=== PATIENT | female | born 1975 | race Caucasian/White ===

== ENCOUNTER 2019-03-17 15:22 | Emergency (ER) | payer BC ==
[~2019-03-17] VITALS: Ht 165.1 cm; Wt 137.3 kg
[2019-03-17 15:27] VITALS: TEMP 98.1
[2019-03-17] MEDS ORDERED: NORVASC 5MG5 MG/TAB PO (15:46)
[2019-03-17 15:51] LABS: BASO % 0.4 % (0.0-2.0); EOS # 0.3 (0.0-0.7); EOS % 3.3 % (0-4.0); GRAN # 4.4 (1.4-6.5); GRAN % 56.3 % (42.2-75.2); HEMATOCRIT 40.7 % (37.0-47.0); HEMOGLOBIN 13.2 g/dl (12.5-16.0); LYMPH # 2.6 (1.2-3.4); MEAN CELL VOLUME 87 fl (80.0-100.0); MEAN CORPUSCULAR HEMOGLOBIN 28 pg (27.0-31.0); MEAN CORPUSCULAR HGB CONC 32 g/dl (33.0-37.0); MEAN PLATELET VOLUME 10.3 fl (7.4-10.4); MONO # 0.5 (0.1-0.6); MONO % 6.6 % (1.7-9.3); PLATELET COUNT 217 K/mm3 (130-400); REDCELL DISTRIBUTION WIDTH-CV 13.2 % (11.5-14.5)
[2019-03-17] MEDS ORDERED: EDARBI80 MG PO (15:58)
[2019-03-17 16:06] VITALS: PULSE 83
[2019-03-17 16:09] LABS: ALANINE AMINOTRANSFERASE 6 U/L (9-52); ALBUMIN 4.2 gm/dL (3.5-5.0); ALKALINE PHOSPHATASE 84 U/L (50-136); ANION GAP 11 mmol/L (7-16); AST,SGOT 17 U/L (15-37); BILIRUBIN,TOTAL 0.3 mg/dL (0.0-1.0); BLOOD UREA NITROGEN 16 mg/dL (7-17); C-REACTIVE PROTEIN 0.6 mg/dL (0.0-0.9); CALCIUM 9.8 mg/dL (8.4-10.2); CARBON DIOXIDE 25 mmol/L (22-30); CHLORIDE 104 mmol/L (98-107); CREATININE, serum 0.91 (0.52-1.25); GLUCOSE 93 mg/dL (74-106); LIPASE 69 U/L (23-300); SODIUM 139 mmol/L (137-145); TOTAL PROTEIN 7.9 gm/dL (6.4-8.2)
[2019-03-17 16:18] LABS: TROPONIN-I < 0.012 ng/mL (0.000-0.035)
[2019-03-17 18:40] VITALS: BP 126/72
== END 2019-03-17 18:43 | disposition home or self-care (01) ==
LOC: COL.ER 15:22
PROVIDERS: Emergency Medicine
DX: R07.89 Other chest pain (principal); I10 Essential (primary) hypertension; F17.210 Nicotine dependence, cigarettes, uncomplicated; Z96.22 Myringotomy tube(s) status; Z98.51 Tubal ligation status

== ENCOUNTER 2021-04-13 09:19 | Emergency (ER) | payer BC ==
[~2021-04-13] VITALS: Ht 167.6 cm; Wt 147.7 kg
[~2021-04-13 09:19] MED LIST: AMOXICILLIN 8751 TAB PO; CATAPRES 0.1MG0.1 MG PO; EDARBI80 MG PO; NAPROXEN500 M1 PO; NORCO 325 MG-51 TAB PO; NORVASC 5MG5 MG/TAB PO; PRINZIDE 12.5 M1 TA1 PO
[2021-04-13 09:26] VITALS: TEMP 98
[2021-04-13 10:49] LABS: BASO % 0.6 % (0.0-2.0); EOS # 0.2 (0.0-0.7); EOS % 3.3 % (0-4.0); HEMOGLOBIN 11.3 g/dl (12.5-16.0); LYMPH # 1.5 (1.2-3.4); LYMPH % 20.4 % (20.0-51.0); MEAN CELL VOLUME 84 fl (80.0-100.0); MEAN CORPUSCULAR HEMOGLOBIN 27 pg (27.0-31.0); MEAN CORPUSCULAR HGB CONC 32 g/dl (33.0-37.0); MEAN PLATELET VOLUME 10.3 fl (7.4-10.4); MONO # 0.4 (0.1-0.6); MONO % 6.1 % (1.7-9.3); PLATELET COUNT 200 K/mm3 (130-400); RED BLOOD COUNT 4.21 M/mm3 (4.10-5.30); REDCELL DISTRIBUTION WIDTH-CV 14.2 % (11.5-14.5)
[2021-04-13 10:50] LABS: HEMATOCRIT 35.3 % (37.0-47.0)
[2021-04-13 11:00] LABS: ALBUMIN 3.9 gm/dL (3.5-5.0); BILIRUBIN,TOTAL 0.4 mg/dL (0.0-1.0); CALCIUM 9.6 mg/dL (8.4-10.2); CREATININE, serum 0.76 (0.52-1.25); TOTAL PROTEIN 7.3 gm/dL (6.4-8.2)
[2021-04-13 11:11] LABS: TROPONIN-I 0.021 ng/mL (0.000-0.035)
[2021-04-13] MEDS ORDERED: PERCOCET 325 MG1 TA2 PO (12:00)
[2021-04-13] MEDS ORDERED: NORVASC 5MG5 MG/TAB PO (12:00)
[2021-04-13] MEDS ORDERED: XARELTO15 MG PO (12:00)
[2021-04-13 12:17] VITALS: BP 124/68; PULSE 78
== END 2021-04-13 12:17 | disposition home or self-care (01) ==
LOC: COL.ER 09:19
PROVIDERS: Personal Emergency Response Attendant
DX: M25.561 Pain in right knee (principal); I16.0 Hypertensive urgency; I10 Essential (primary) hypertension; F17.210 Nicotine dependence, cigarettes, uncomplicated
CPT/HCPCS: J0360; J2270; J2405

== ENCOUNTER 2024-03-25 11:48 | Inpatient (IN) | payer OTHER ==
[~2024-03-25] VITALS: Ht 167.6 cm; Wt 182.7 kg
[~2024-03-25 11:48] MED LIST changes: +PERCOCET 325 MG1 TA2 PO; +XARELTO15 MG PO
[2024-03-25] MEDS ORDERED: Morphine 4 MG/ML VIAL IV ONE (12:30)
[2024-03-25 12:57] LABS: MEAN CELL VOLUME 79 fl (80.0-100.0); MEAN CORPUSCULAR HGB CONC 29 g/dl (33.0-37.0); MEAN PLATELET VOLUME 9.5 fl (7.4-10.4); PLATELET COUNT 235 K/mm3 (130-400); RED BLOOD COUNT 4.27 M/mm3 (4.10-5.30); REDCELL DISTRIBUTION WIDTH-CV 17.1 % (11.5-14.5)
[2024-03-25 13:03] LABS: HEMATOCRIT 33.5 % (37.0-47.0); HEMOGLOBIN 9.8 g/dl (12.5-16.0); MEAN CORPUSCULAR HEMOGLOBIN 23 pg (27-31)
[2024-03-25 13:36] LABS: ALBUMIN 2.7 g/dL (3.5-5.0); BILIRUBIN,TOTAL 0.9 mg/dL (0.2-1.2); CALCIUM 8.4 mg/dL (8.4-10.2); CREATININE, serum 1.3 mg/dL (0.57-1.11); POTASSIUM 3.9 mEq/L (3.5-4.5); TOTAL PROTEIN 7.3 g/dl (6.2-8.1)
[2024-03-25 13:54] LABS: ANISOCYTOSIS 1+; BAND 16 % (0-10); LYMPHOCYTE 7 % (20.0-51.0); NEUTROPHILS 77 % (42.0-75.2); PLATELET ESTIMATE NORMAL (NORMAL)
[2024-03-25 13:55] LABS: MICROCYTOSIS 1+
[2024-03-25] MEDS ORDERED: ALEVE LIQCAPS PO (15:56)
[2024-03-25] MEDS ORDERED: *Potassium Replacement Protocol MC SCH (16:00)
[2024-03-25] MEDS ORDERED: NS 1,000 ML IV ONE (16:15)
[2024-03-25] MEDS ORDERED: Iohexol 300 - 100 ML VIAL IV ONE (16:37)
[2024-03-25] MEDS ORDERED: NS 100 ML IV SCH (16:38)
[2024-03-25] MEDS ORDERED: NS 1,000 ML IV SCH (16:45)
[2024-03-25 16:48] VITALS: BP 147/77; PULSE 98; TEMP 99.9
[2024-03-25] MEDS ORDERED: cefTRIAXone 2 G in Water For Injection,Sterile 20 ML IV SCH (17:00)
--- NOTE | 2024-03-25 17:27 | NUR ---
PATIENT ARRIVED TO MEDICAL FLOOR AT APPROX 1645. PATIENT IS PLEASANT, ALERT AND ORIENTED. INTAKE AND PHYSICAL ASSESSMENT COMPLETE. MED REC COMPLETE. PATIENT'S BLE ARE RED, EDEMATOUS, WEEPING, AND PAINFUL. RLE ELEVATED PER ORDERS. IV TO LEFT AC IS PATENT AND CDI. PATIENT IS ABLE TO AMBULATE WITHOUT DEVICES, HOWEVER, THIS RN ADVISED PATIENT TO CALL BEFORE GETTING OUT OF BED. CALL LIGHT WITHIN REACH.
[2024-03-25 17:33] VITALS: BP_SYST 147
--- NOTE | 2024-03-25 18:22 | NUR ---
PATIENT SETTLED IN THE ROOM. ALERT AND ORIENTED. DAUGHTER AT BEDSIDE. PATIENT ATE DINNER. DENIES NEEDS OR CONCERNS AT THIS TIME.
[2024-03-25 18:54] VITALS: BP 148/73; PULSE 101; TEMP 102.7
[2024-03-25] MEDS ORDERED: Acetaminophen 325 MG TAB PO PRN (19:15)
[2024-03-25 20:31] VITALS: TEMP 100.5
[2024-03-25 21:00] VITALS: BP_SYST 148
--- NOTE | 2024-03-25 22:48 | NUR ---
At start of shift patients daughter at bedside. pt alert and oriented x3, wincing with movement of BLE. pt has mutiple open areas to bilateral lower extremities that she is being seen by wound care outpatient for, per pt report has been going on for a few months. She works at [employer] and was not able to endure her shift today r/t fever and chills. BLE are weeping and stick to chucks, chcks being changed ofen so that pt legs dot get stuck to it. Fluids running per orders to patent IV. Pt able to void with one person standby assist.Call light within reach. Denies further need at this time.
[2024-03-25 23:36] VITALS: BP 147/73; PULSE 83; TEMP 98.1
[2024-03-26] VITALS (12 sets, daily range): BP systolic 127–161; BP diastolic 65–82; PULSE 69–89; TEMP 98–98.4
[2024-03-26] MEDS ORDERED: Heparin 5,000 UNITS/ML 1 ML VIAL SQ SCH
[2024-03-26 05:44] LABS: BASO % 0.4 % (0.0-2.0); EOS % 0.4 % (0.0-4.0); GRAN # 8.9 K/mm3 (1.4-6.5); GRAN % 87.9 % (42.2-75.2); LYMPH # 0.7 K/mm3 (1.2-3.4); LYMPH % 7.1 % (20.0-51.0); MEAN CELL VOLUME 78 fl (80.0-100.0); MEAN CORPUSCULAR HGB CONC 29 g/dl (33.0-37.0); MEAN PLATELET VOLUME 9.2 fl (7.4-10.4); MONO # 0.3 K/mm3 (0.1-0.6); MONO % 3.1 % (1.7-9.3); PLATELET COUNT 198 K/mm3 (130-400); RED BLOOD COUNT 3.87 M/mm3 (4.10-5.30); REDCELL DISTRIBUTION WIDTH-CV 17.2 % (11.5-14.5)
[2024-03-26 05:48] LABS: HEMATOCRIT 30.3 % (37.0-47.0); HEMOGLOBIN 8.8 g/dl (12.5-16.0); MEAN CORPUSCULAR HEMOGLOBIN 23 pg (27-31)
[2024-03-26 06:08] LABS: CALCIUM 8.9 mg/dL (8.4-10.2); CREATININE, serum 1.1 mg/dL (0.57-1.11); MAGNESIUM 1.9 mg/dL (1.6-2.6); PHOSPHOROUS 2.6 mg/dL (2.3-4.7); POTASSIUM 4.2 mEq/L (3.5-4.5)
[2024-03-26] MEDS ORDERED: Metoprolol Tartrate 25 MG TAB PO SCH (09:20)
[2024-03-26] MEDS ORDERED: Vancomycin 2 GM,Special Dose/Pharmacy Prepared 2 GM in NS 500 ML IV SCH (10:00)
[2024-03-26] MEDS ORDERED: Morphine 4 MG/ML VIAL IV ONE (11:45)
--- NOTE | 2024-03-26 12:44 | NUR ---
JUMANA met with patient and casimiro Morgan ([phone]) to complete initial assessment for discharge planning. Patient on cell phone throughout assessment and was minimally engaged with this consumer loan underwriter. When asked if she was on a phone call, patient stated "No, I'm trying to do my [place] paperwork". and continued this the entirety of visit. Patient and daughter did verify that patient lives at home in [place] with her two adult children. Pt uses [facility]. She is employed at [employer]. Patient denies having a PCP and stated she cannot afford to pay co-pay at a PCP and OP wound care. Patient states she "usually can afford her medicines as long as they are on the $4 list." Patient denies having any DME. Patient states she does not take showers due to having open wounds and only sponge bathes. Discussed discharge plan could possibly involve OP IV antibiotics. Patient did not appear too concerned about this. Patient plans to return home at discharge. Discharge plan: Home
--- NOTE | 2024-03-26 13:00 | NUR ---
Patient alert and oriented x4. Patient tolerating activity around room. Complains of pain to bilateral lower extremities, states it's worse when legs are elevated and improves when dangling legs at edge of bed. Both legs are swollen and red, the right leg has more redness than left extending up thigh. Both legs are weeping yellow/clear fluid. Telfa, ABD pads, kerlix, and SERGE wrap applied to both legs. Increased pain noted during dressing change, patient in tears. Dr. Lang notified and new pain medication orders obtained. PRN Morphine administered by JUAN Carter. Patient's daughter at bedside. Call light within reach, all needs met at this time.
--- NOTE | 2024-03-26 16:35 | NUR ---
Patient noted to have increased shortness of breath. States she feels anxious and "panicky" which is preventing her from falling asleep. While administering IV medications patient was observed to be falling asleep and then wakes up appearing startled, this has been frequent per patient's daughter. Patient also complains of discomfort to left side chest and back area when laying down. SpO2 91% on room air, encouraged to wear oxygen while asleep. RT educated patient on this as well. Patient sitting up in recliner to see if sitting rather than laying improves symptoms. Dr. Lang updated, new ABG orders obtained. Patient's call light within reach, all needs met at this time.
[2024-03-26 16:51] LABS: ARTERIAL BLD GAS TCO2 CT 24.7; ARTERIAL BLOOD GAS BASE EXCESS -0.9 (-2-2); ARTERIAL BLOOD GAS HCO3 23.5 meq/L (22-26); ARTERIAL BLOOD GAS PO2 69.2 mmHg (80-100); ARTERIAL BLOOD GAS pH 7.41 (7.35-7.45)
--- NOTE | 2024-03-26 19:36 | NUR ---
Patient sitting up in recliner and complains of increased pain to right leg. Patient assisted into bed to elevate extremities. PRN [place] administered. Daughter at bedside, call light within reach. All needs met at this time.
--- NOTE | 2024-03-26 20:55 | NUR ---
PATIENT IS RESTING IN BED WATCHING TV. SHE HAD REQUESTED ASSISTANCE TO USE THE RESTROOM AND WAS VERY EMOTIONAL AND TEARFUL RN WAS ASSISTING HER OUT OF BED, STATES EMOTION IS DUE TO FRUSTRATION OVER NOT BEING ABLE TO MOVE HER RIGHT LEG SHE WOULD NORMALLY BE ABLE TO. ALSO REPORTS FEELING OF NOT BEING ABLE TO TAKE A DEEP BREATH, HOWEVER, LUNG SOUNDS ARE CLEAR. CALL LIGHT IS WITHIN REACH. BED IS LOCKED AND IN LOW POSITION.
[2024-03-27] VITALS (11 sets, daily range): BP systolic 128–156; BP diastolic 70–88; PULSE 63–82; TEMP 98.1–98.5
[2024-03-27 06:27] LABS: BASO % 0.3 % (0.0-2.0); EOS # 0.2 K/mm3 (0.0-0.7); EOS % 2.3 % (0.0-4.0); GRAN % 76.7 % (42.2-75.2); LYMPH # 1.3 K/mm3 (1.2-3.4); LYMPH % 14.2 % (20.0-51.0); MEAN CELL VOLUME 79 fl (80.0-100.0); MEAN CORPUSCULAR HGB CONC 30 g/dl (33.0-37.0); MONO # 0.6 K/mm3 (0.1-0.6); MONO % 6.1 % (1.7-9.3); PLATELET COUNT 199 K/mm3 (130-400); RED BLOOD COUNT 3.75 M/mm3 (4.10-5.30); REDCELL DISTRIBUTION WIDTH-CV 17.1 % (11.5-14.5)
[2024-03-27 06:42] LABS: HEMATOCRIT 29.5 % (37.0-47.0); HEMOGLOBIN 8.7 g/dl (12.5-16.0); MEAN CORPUSCULAR HEMOGLOBIN 23 pg (27-31)
[2024-03-27 08:59] LABS: CALCIUM 8.5 mg/dL (8.4-10.2); CREATININE, serum 1.07 mg/dL (0.57-1.11)
[2024-03-27 09:32] LABS: BLOOD UREA NITROGEN 16 mg/dL (7-19); CALCIUM 8.9 mg/dL (8.4-10.2); CHLORIDE 105 mEq/L (98-107); GLUCOSE 96 mg/dL (70-99); SODIUM 136 mEq/L (136-145)
[2024-03-27 09:33] LABS: ALBUMIN 2.8 g/dL (3.5-5.0); MAGNESIUM 2.1 mg/dL (1.6-2.6)
[2024-03-27] MEDS ORDERED: Metoprolol Tartrate 25 MG TAB PO SCH (11:22)
--- NOTE | 2024-03-27 14:42 | NUR ---
Agree with TRACIE Harrison assessment of the patient.
--- NOTE | 2024-03-27 19:57 | NUR ---
PATIENT RESTING IN BED. REPORTING PAIN IN BILATERAL LEGS FOLLOWING DRESSING CHANGE, TYLENOL GIVEN AT PATIENT REQUEST. PATIENT SEEMS TO BE IN BETTER SPIRITS THIS EVENING AND IS NOT TEARFUL. DENIES ANY NAUSEA OR SHORTNESS OF BREATH AT THIS TIME. CALL LIGHT IS WITHIN REACH. BED LOCKED AND IN LOW POSITION.
[2024-03-28] VITALS (13 sets, daily range): BP systolic 128–184; BP diastolic 69–86; PULSE 63–78; TEMP 97.8–98.5
[2024-03-28 06:46] LABS: BASO # 0.1 K/mm3 (0.0-0.2); BASO % 0.7 % (0.0-2.0); EOS # 0.2 K/mm3 (0.0-0.7); EOS % 3.2 % (0.0-4.0); GRAN # 4.8 K/mm3 (1.4-6.5); GRAN % 67.2 % (42.2-75.2); LYMPH # 1.5 K/mm3 (1.2-3.4); LYMPH % 21.1 % (20.0-51.0); MEAN CELL VOLUME 79 fl (80.0-100.0); MEAN CORPUSCULAR HGB CONC 29 g/dl (33.0-37.0); MEAN PLATELET VOLUME 10.3 fl (7.4-10.4); MONO # 0.5 K/mm3 (0.1-0.6); MONO % 7.1 % (1.7-9.3); PLATELET COUNT 230 K/mm3 (130-400); RED BLOOD COUNT 3.91 M/mm3 (4.10-5.30); REDCELL DISTRIBUTION WIDTH-CV 17.2 % (11.5-14.5)
[2024-03-28 06:59] LABS: MEAN CORPUSCULAR HEMOGLOBIN 23 pg (27-31)
[2024-03-28 07:18] LABS: ALBUMIN 2.4 g/dL (3.5-5.0); CALCIUM 8.5 mg/dL (8.4-10.2); CREATININE, serum 1.04 mg/dL (0.57-1.11); MAGNESIUM 2.3 mg/dL (1.6-2.6); POTASSIUM 3.8 mEq/L (3.5-4.5)
[2024-03-28] MEDS ORDERED: Potassium Bicarbonate/Citrate 20 MEQ Effervescent TAB PO ONE (08:00)
--- NOTE | 2024-03-28 08:00 | NUR ---
Pt resting in bed upon entry. Pt is hypertensive this morning. Administered scheduled meds per NOV. Pt requested PRN tylenol for leg pain. Tylenol given. Performed shift assessment. Swelling to BLE continues. Redness extends to R upper thigh with weeping blisters to BLE and scattered gold crusting to R lamb. No further complaints at this time. Call light is in reach with breakfast at bedside.
[2024-03-28 08:38] LABS: PHOSPHOROUS 4.2 mg/dL (2.3-4.7)
[2024-03-28] MEDS ORDERED: Losartan 50 MG TAB PO SCH (09:00)
--- NOTE | 2024-03-28 09:12 | NUR ---
SW attended clinical rounds. Patient not stable for discharge at this time. SW met with patient to provide PCP list due to patient reporting having no PCP. Patient stated she needs phone and fax number for hospital for FMLA paperwork. JUMANA contact [facility] in R[facility] to request visit [facility] to provide information for FMLA documents and to complete FAA for copays. Discharge plan: Home pending medical course
[2024-03-28] MEDS ORDERED: Furosemide 40 MG/4 ML VIAL IV ONE (09:15)
--- NOTE | 2024-03-28 20:57 | NUR ---
PT IS LAYING IN THE BED WATCHING TV. SHE IS ALERT AND ORIENTED. SHE IS ON ROOM AIR AT THIS TIME. SHE VOIDS ON HER OWN. SHE HAS NO COMPLAINTS AT THIS TIME. HER BILATERAL LOWER LEGS ARE WRAPPED WITH SERGE BANDAGE. NO DRAINAGE IS APPARENT AT THIS TIME ON THE OUTER SERGE WRAP. WILL CHANGE THE BANDAGE AT MIDNIGHT. THE REDNESS CONTINUES ON HER RIGHT LEG UP TO HER MID AND UPPER THIGH. PER THE PATIENT THE UPPER THIGH IS NOT RED. HER CALL SYKES IS AT THE BEDSIDE.
[2024-03-29 01:00] VITALS: BP_SYST 137
[2024-03-29 04:39] VITALS: BP 127/76; PULSE 77; TEMP 98.2
[2024-03-29 05:00] VITALS: BP_SYST 127
[2024-03-29 06:52] LABS: MEAN CELL VOLUME 79 fl (80.0-100.0); MEAN CORPUSCULAR HGB CONC 29 g/dl (33.0-37.0); PLATELET COUNT 247 K/mm3 (130-400); RED BLOOD COUNT 3.65 M/mm3 (4.10-5.30); REDCELL DISTRIBUTION WIDTH-CV 17.2 % (11.5-14.5)
[2024-03-29 07:05] LABS: HEMATOCRIT 28.9 % (37.0-47.0); HEMOGLOBIN 8.5 g/dl (12.5-16.0); MEAN CORPUSCULAR HEMOGLOBIN 23 pg (27-31)
[2024-03-29 07:09] LABS: ALBUMIN 2.4 g/dL (3.5-5.0); CALCIUM 8.3 mg/dL (8.4-10.2); CREATININE, serum 1.03 mg/dL (0.57-1.11); MAGNESIUM 2.2 mg/dL (1.6-2.6); PHOSPHOROUS 4.6 mg/dL (2.3-4.7); POTASSIUM 3.7 mEq/L (3.5-4.5)
[2024-03-29 07:25] VITALS: BP 126/75; PULSE 75; TEMP 98.3
[2024-03-29] MEDS ORDERED: Potassium Bicarbonate/Citrate 20 MEQ Effervescent TAB PO SCH (08:00)
--- NOTE | 2024-03-29 08:00 | NUR ---
patient alert and oriented x4. patient on room air at this time. wear oxygen at night. Patient reports pain to bilateral legs rating it at 8/10. patient has generalized edema. bilateral lower extremity edema with some redness to right lower extremity. left lower extremity swollen and weeping. both legs covered with kahlil wraps. patient call light within reach. bed at lowest position.
[2024-03-29 08:23] LABS: BASOPHIL 1 % (0-2); EOSINOPHIL 2 % (0-4); LYMPHOCYTE 28 % (20.0-51.0)
[2024-03-29 08:24] LABS: HYPOCHROMIA 1+; NEUTROPHILS 59 % (42.0-75.2); PLATELET ESTIMATE NORMAL (NORMAL)
[2024-03-29 08:25] VITALS: BP_SYST 126
[2024-03-29] MEDS ORDERED: LOPRESSOR 225 MG/TAB PO (08:31)
[2024-03-29] MEDS ORDERED: COZAAR 50MG50 MG/TAB PO (08:32)
[2024-03-29] MEDS ORDERED: OMNICEF 300MG300 MG PO (09:04)
[2024-03-29] MEDS ORDERED: CIPRO750 MG PO (09:05)
--- NOTE | 2024-03-29 09:20 | NUR ---
PATIENT SPO2 ON RA SITTING, 92%. PATIENT REQUIRES 3 LPM WHILE WALKING TO KEEP SPO2 ABOVE 88%.
[2024-03-29] MEDS ORDERED: Furosemide 40 MG/4 ML VIAL IV SCH (10:21)
[2024-03-29] MEDS ORDERED: DOXYCYCLINE 10100 MG PO (10:24)
--- NOTE | 2024-03-29 11:11 | NUR ---
SW notified that patient is requiring oxygen when ambulating. SW met with patient to discuss DME provider of choice to order oxygen for home at discharge, which is planned for today. Patient stated "I don't want it, I won't use it." RN at bedside during visit. Discussion related to patient's oxygen level dropping with exertion/ambulation. Patient stated she does not want oxygen and plans to return home and to work at discharge. Discharge plan: Home
--- NOTE | 2024-03-29 12:30 | NUR ---
patient discharge instructions given. patient verbalied understanding. patient fresh new dressing change was provided before discahrge. Patient IV to left wrist removed. patient instructed to call when ready for PCT to escort her out of hospital.
== END 2024-03-29 13:20 | disposition home or self-care (01) | DRG 871 ==
LOC: COL.ER 11:48 → MEDICAL 15:02
PROVIDERS: Physician Assistant; ADMIT Internal Medicine
DX: A41.9 Sepsis, unspecified organism (principal); J96.01 Acute respiratory failure with hypoxia; L03.115 Cellulitis of right lower limb; N17.9 Acute kidney failure, unspecified; D64.9 Anemia, unspecified; I10 Essential (primary) hypertension; Z72.0 Tobacco use; R53.81 Other malaise
CPT/HCPCS: J0696; J1644; J1940; J2270; J3370; J7030; J7040; Q3014; Q9967